=== PATIENT | male | born 1955 | race Caucasian/White ===

== ENCOUNTER 2023-09-07 09:29 | Emergency (ER) | payer OTHER, SELFPAY ==
[2023-09-07] VITALS (18 sets, daily range): BP systolic 115–187; BP diastolic 72–114; PULSE 75–88; RESP 18; TEMP 36.8; O2SAT 93–98; BMI 31.8
--- NOTE | 2023-09-07 09:45 | ED_ITS ---
HPI - General Adult General Chief complaint: Abdominal Pain Stated complaint: flu symptoms Time Seen by Provider: 09/07/23 09:43 History of Present Illness HPI narrative: pt flu like symptoms x 3 days, has not been eating or drinking. nausea. denies vomitting. little diarrhea . pt drove self to [facility], staff found him in his car weak and tired. called ems. ems gave pt 4mg zofran 68-year-old man presenting to the emergency department with spouse with complaint of flu-like symptoms over the last 3 days. Just notes dry heaves and unable to eat anything. Actually denies diarrhea on initial questioning. Tremendous abdominal pain though it seems like this is really more representing nausea as I ask further. Cramping. Increasingly weak. No chest pain or shortness of breath. Did receive Zofran from EMS after he drove himself to the clinic and was collected in his car. Brought here by EMS. Does have prior hernia repair. No fever but has been chilled. Related Data Home Medications Medication Instructions Recorded Confirmed atorvastatin 20 mg tablet 20 mg PO DAILY 09/07/23 09/07/23 buspirone 7.5 mg tablet 7.5 mg PO BID 09/07/23 09/07/23 diltiazem HCl 240 mg 240 mg PO DAILY 09/07/23 09/07/23 capsule,extended release 24 hr escitalopram oxalate 20 mg tablet 20 mg PO QAM 09/07/23 09/07/23 gabapentin 300 mg capsule 600 mg PO QPM 09/07/23 09/07/23 ropinirole 0.5 mg tablet mg PO 09/07/23 Previous Rx's Medication Instructions Recorded tamsulosin 0.4 mg capsule (Flomax) 0.4 mg PO DAILY #15 caps 09/07/23 Allergies Allergy/AdvReac Type Severity Reaction Status Date / Time No Known Drug Allergies Allergy Verified 09/07/23 09:37 Review of Systems Status of ROS: Reports: 6 or more systems reviewed and unremarkable except as noted in History and below [facility] Social History Smoking Status: Never smoker Do you use any of these nicotine containing products: None Second hand tobacco smoke exposure: No How often do you have a drink containing alcohol: never AUDIT-C Alcohol total score: 0 Non-prescribed substance use: denies use service: No Exam Narrative: Exam Narrative: Seems quite uncomfortable. Trembling a little bit at times. Eyes are closed tight. Skin is warm and dry. Oropharynx is dry. Lower extremities are well perfused and without edema. Abdomen with present bowel sounds is overweight and soft without peritoneal signs. Seems to be a little uncomfortable to palpation everywhere. Cranial nerves 2-12 are intact. Lungs appear to be clear. Heart in regular rate and rhythm. Const: Vital Signs, click to edit/add: Vital Signs - 24 hr 09/07/23 09:32 09/07/23 09:43 09/07/23 09:44 Temperature 98.2 F Pulse Rate 78 79 Pulse Rate [Pulse Oximeter] 75 Respiratory Rate 18 Blood Pressure 158/95 H Blood Pressure [Ri ght Upper Arm] 187/114 H Pulse Oximetry 97 98 [facility] 09/07/23 10:00 09/07/23 10:01 09/07/23 10:32 Temperature Pulse Rate 83 80 Pulse Rate [Pulse Oximeter] Respiratory Rate Blood Pressure 155/100 H 146/80 H Blood Pressure [Ri ght Upper Arm] Pulse Oximetry 98 98 Oxygen Delivery Me thod 09/07/23 11:01 09/07/23 11:32 09/07/23 12:01 Temperature Pulse Rate Pulse Rate [Pulse Oximeter] Respiratory Rate Blood Pressure 163/95 H 168/97 H 153/92 H Blood Pressure [Ri ght Upper Arm] Pulse Oximetry Oxygen Delivery Me thod 09/07/23 12:35 09/07/23 13:00 09/07/23 13:02 Temperature Pulse Rate 81 82 88 Pulse Rate [Pulse Oximeter] Respiratory Rate Blood Pressure 166/86 H Blood Pressure [Ri ght Upper Arm] Pulse Oximetry 97 96 96 Oxygen Delivery Me thod 09/07/23 13:30 09/07/23 13:32 09/07/23 13:33 Temperature Pulse Rate 80 82 84 Pulse Rate [Pulse Oximeter] Respiratory Rate Blood Pressure 139/80 Blood Pressure [Ri ght Upper Arm] Pulse Oximetry 95 94 94 Oxygen Delivery Me thod 09/07/23 14:00 09/07/23 14:02 09/07/23 14:03 Temperature Pulse Rate 82 83 81 Pulse Rate [Pulse Oximeter] Respiratory Rate Blood Pressure 115/72 Blood Pressure [Ri ght Upper Arm] Pulse Oximetry 94 96 93 Oxygen Delivery Ca thod Documenting provider has reviewed patient's vital signs: yes Course Vital Signs Vital signs: Initial Vital Signs Temperature 98.2 F 09/07/23 09:32 Temperature Source Temporal Artery Scan 09/07/23 09:32 Pulse Rate 75 09/07/23 09:32 Respiratory Rate 18 09/07/23 09:32 Blood Pressure 187/114 H 09/07/23 09:32 Blood Pressure Mean 138 H 09/07/23 09:32 Blood Pressure Position Supine 09/07/23 09:32 Pulse Oximetry 97 09/07/23 09:32 Oxygen Delivery Method Room Air 09/07/23 09:32 Vital Signs Temperature 98.2 F 09/07/23 09:32 Pulse Rate 75 09/07/23 09:32 Respiratory Rate 18 09/07/23 09:32 Blood Pressure 187/114 H 09/07/23 09:32 Pulse Oximetry 97 09/07/23 09:32 Oxygen Delivery Method Room Air 09/07/23 09:32 Temperature 98.2 F 09/07/23 09:32 Pulse Rate 81 09/07/23 14:03 Respiratory Rate 18 09/07/23 09:32 Blood Pressure 115/72 09/07/23 14:02 Pulse Oximetry 93 09/07/23 14:03 Oxygen Delivery Method Room Air 09/07/23 09:32 Medical Decision Making [facility] Narrative Medical decision making narrative: I think he is bothered most by nausea. Can certainly give more treatment for this. Is receiving a L normal saline. Does seem to be an enteritis or some form of gastroenteritis. Reassured somewhat by his abdominal exam which again is soft and diffusely tender as opposed to localizing. No rigidity demonstrated. These chills may represent rigors. Will screen though for COVID influenza. Blood cultures. He might actually be septic. Though blood pressure reassuringly elevated. Could have diverticulitis. Will also evaluate for evidence of any ischemic cardiac event. I do think that if we can get his nausea settle down, he will feel a lot better. Subsequently noted to have hematuria on urine collection. Differential potential concern of nephritis. Creatinine is 1.8 though. Discomfort is diffuse unlike typical presentation for kidney stone. Did order CT imaging with IV contrast. Perhaps or some vascular anomaly any to dress as well. CT IV contrasted scan of abdomen and pelvis reviewed by me shows numerous cysts in the right kidney bilateral stone burden and some hydronephrosis mild in the right kidney and ureter with a 5 mm stone at the right ureterovesicular junction COMPARISON: CT abdomen pelvis 04/19/2020. FINDINGS: Lower chest: Unremarkable. Liver: Mild hepatic steatosis. Scattered hepatic cysts. Gallbladder and bile ducts: Unremarkable. No stones or inflammation. No biliary dilatation. Pancreas: Unremarkable. No mass or inflammation. Spleen: Unremarkable. Normal in size. No masses. Adrenal glands: Unremarkable. No nodules. Kidneys: Mild right hydroureteronephrosis with 5 millimeter stone at the right UVJ. Additional nonobstructing stones measuring up to 6 millimeters on the right and 9 millimeters on the left. No left-sided hydronephrosis. Scattered renal cysts. No suspicious renal mass. GI tract: Unremarkable. Normal in caliber. No sign of mass or inflammation. No findings of appendicitis. No diverticular disease. Vasculature: Abdominal aorta is normal in caliber. Mesenteric arteries are patent. Lymph nodes: No lymphadenopathy. Peritoneum/Abdominal Wall: Small fat containing umbilical hernia. No sign of mass or infiltration. No free air or significant free fluid. Pelvis: Mildly enlarged prostate. Bones: Degenerative spondylosis. 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 IMPRESSION: 1. 5 millimeter stone at the right UVJ results in mild right hydroureteronephrosis. 2. Additional bilateral nonobstructing renal calculi. 3. Mild hepatic steatosis. 4. Degenerative spondylosis. 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 Later spouse does mention that he has had a kidney stone in the past. Maybe 3 years ago. Did re-dose with Reglan for nausea and then when I noted this kidney stone I think probably the nausea was being driven by pain. Abdominal exam though had been benign. I did order ketorolac and morphine. Finally Mr. Bolton seemed to have more energy set up and was tolerating oral intake. See patient discharge plan Lab Data Lab results reviewed: Yes I reviewed the patient's lab results Labs: Lab Results 09/07/23 09/07/23 09/07/23 Range/Units 10:10 10:20 Unknown WBC 11.22 H (4.50-11.00) K/uL RBC 4.97 (4.30-5.90) m/uL Hgb 15.1 (13.5-17.5) gm/dL Hct 44.6 (37.0-53.0) % MCV 90 (80-100) fL MCH 30 (26-34) pg MCHC 34 (32-36) gm/dL RDW Coeff of Ray 12.7 (11.5-15.5) % Plt Count 192 (140-440) K/uL Neut % (Auto) 86.2 H (42.0-72.0) % Lymph % (Auto) 7.6 L (20-44) % [place] % (Auto) 5.3 (0.0-11.0) % Eos % (Auto) 0.0 (0.0-7.0) % Baso % (Auto) 0.0 (0.0-3.0) % Neut # (Auto) 9.70 H (1.7-7.0) K/uL Lymph # (Auto) 0.90 (0.90-2.90) K/uL [place] # (Auto) 0.60 (0.00-0.90) K/UL Eos # (Auto) 0.00 (0.00-0.50) K/uL Baso # (Auto) 0.00 (0.00-0.30) K/uL Abs Immat Gran (auto) 0.10 (0.00-0.30) K/uL Imm/Tot Granulo (auto) 0.9 % Sodium 138 (135-149) mmol/L Potassium 4.1 (3.6-5.1) mmol/L Chloride 99 (96-114) mmol/L Carbon Dioxide 24 (20-32) mmol/L Anion Gap 15 (7-15) mEq/L BUN 30 (7-30) mg/dL Creatinine 1.8 H (0.5-1.5) mg/dL Estimated Creat Clear 43.00 Estimated GFR 41 ml/min Glucose 142 H (60-115) mg/dL Calcium 9.0 (8.4-10.6) mg/dL Total Bilirubin 1.4 (0.1-1.5) mg/dL Direct Bilirubin 0.0 (0.0-0.5) mg/dL AST 61 H (12-35) U/L ALT 40 (4-50) U/L Alkaline Phosphatase 89 (40-150) U/L Troponin I < 0.01 L (0.01-0.04) ng/mL NT-Pro-B Natriuret Pep 139 pg/mL Total Protein 7.6 (6.0-8.3) g/dL Albumin 4.4 (3.3-5.0) g/dL Urine Color Yellow (Yellow) Urine Appearance Clear (Clear) Urine pH 6.5 (5.0-8.5) Ur Specific [place] 1.025 (1.000-1.030) Urine Protein 1+ A (Negative) Urine Glucose (UA) Trace A (Negative) Urine Ketones 2+ A (Negative) Urine Blood Trace-lysed A (Negative) Urine Nitrite Negative (Negative) Urine Bilirubin Negative (Negative) Urine Urobilinogen 0.2 (0.2-1.0) Ur Leukocyte Esterase Negative (Negative) Urine RBC 2-5 A (0-2) Urine WBC 0-2 (0-5) Ur Squamous Epith Cells Few (None-Few) Urine Bacteria Few A (None) SARS-CoV-2 (PCR) Negative SARS-CoV-2 (Negative) Influenza Type A (PCR) Negative PCR FLU A (Negative) Influenza Type B (PCR) Negative PCR FLU B (Negative) Discharge Plan Discharge Clinical Impression: Ureteral colic, Right distal ureteral calculus Patient Disposition: Home w/ Parent or Adult Condition: Improved Additional Instructions: Focus on hydration with water generally. Follow-up middle of next week to recheck labs pertaining to your kidneys. Can take ibuprofen for pain. If needed Percocet from [facility]. Zofran also from [facility] for nausea. Consider straining your urine over this next week. I am sending Flomax into the pharmacy for you. This can be helpful with the spasming pain. This can be taken daily until you are sure the stone has passed. If you choose to take this, do not need to start until tomorrow. You received today's dose here today. Return for uncontrolled pain, intractable vomiting, fever. Also be seen if pain symptoms, though controlled, are continuing still in 4 days. Prescriptions: New tamsulosin [Flomax] 0.4 mg capsule 0.4 mg PO DAILY Qty: 15 0RF No Action atorvastatin 20 mg tablet 20 mg PO DAILY diltiazem HCl 240 mg capsule,extended release 24hr 240 mg PO DAILY ropinirole 0.5 mg tablet PO gabapentin 300 mg capsule 600 mg PO QPM buspirone 7.5 mg tablet 7.5 mg PO BID escitalopram oxalate 20 mg tablet 20 mg PO QAM Follow Up/Referrals: Kris Powell MD [Primary Care Provider] - Stand Alone Forms: [email or web address] Info Instructions
[2023-09-07] MEDS: 0.9 % SODIUM CHLORIDE 1000 ml 1,000 ML IV ×2 (10:11→11:27)
[2023-09-07] MEDS: PROMETHAZINE 25 MG/ML INJ 12.5 MG IVP (10:26)
[2023-09-07 10:33] LABS: Hematocrit 44.6 % (37.0-53.0); Hemoglobin* 15.1 gm/dL (13.5-17.5); Immature Granulocytes Pct Auto 0.9 %; Lymphocytes Percent Auto 7.6 % (20-44); Mean Corpuscular HGB Conc 34 gm/dL (32-36); Mean Corpuscular Hemoglobin 30 pg (26-34); Mean Corpuscular Volume 90 fL (80-100); Monocytes Percent Auto 5.3 % (0.0-11.0); Neutrophils Percent Auto 86.2 % (42.0-72.0); Platelet Count* 192 K/uL (140-440); RDW Coefficient of Variation % 12.7 % (11.5-15.5); Red Blood Count 4.97 m/uL (4.30-5.90); White Blood Count* 11.22 K/uL (4.50-11.00)
[2023-09-07 10:39] LABS: Slide Review Reflex No
[2023-09-07 10:46] LABS: Appearance Urine Clear (Clear); Bilirubin Urine Negative (Negative); Blood Urine Trace-lysed (Negative); Color Urine Yellow (Yellow); Glucose Urine Trace (Negative); Ketones Urine 2+ (Negative); Leukocyte Esterase Urine Negative (Negative); Nitrite Urine Negative (Negative); Protein Urine 1+ (Negative); Specific Gravity Urine 1.025 (1.000-1.030); Urobilinogen Urine 0.2 (0.2-1.0); pH Urine 6.5 (5.0-8.5)
[2023-09-07 10:48] LABS: Albumin* 4.4 g/dL (3.3-5.0); Chloride* 99 mmol/L (96-114); Sodium* 138 mmol/L (135-149)
[2023-09-07 10:49] LABS: Potassium* 4.1 mmol/L (3.6-5.1)
[2023-09-07 10:51] LABS: Alanine Aminotransferase* 40 U/L (4-50); Alkaline Phosphatase* 89 U/L (40-150); Anion Gap 15 mEq/L (7-15); Aspartate Amino Transferase* 61 U/L (12-35); Bilirubin Total* 1.4 mg/dL (0.1-1.5); Blood Urea Nitrogen* 30 mg/dL (7-30); Carbon Dioxide* 24 mmol/L (20-32); Creatinine* 1.8 mg/dL (0.5-1.5); Estimated Glomerular Filt Rate 41 ml/min; Glucose* 142 mg/dL (60-115); Total Protein* 7.6 g/dL (6.0-8.3)
[2023-09-07 10:55] LABS: Bacteria Urine Few; Squamous Epithelial Cell Urine Few (None-Few); WBC Urine 0-2 (0-5)
[2023-09-07 11:12] LABS: NT Pro B Type NatriureticPept* 139 pg/mL; Troponin I* < 0.01 ng/mL (0.01-0.04)
[2023-09-07 11:12] LABS: PCR FLU A Negative PCR FLU A (Negative); PCR FLU B Negative PCR FLU B (Negative)
[2023-09-07 11:17] LABS: SARS PCR* Negative SARS-CoV-2 (Negative)
--- NOTE | 2023-09-07 11:26 | CRLHL7_ITS ---
For Patients: As a result of the Century Cures Act, medical imaging exams and procedure reports are released immediately into your electronic medical record. You may view this report before your referring provider. If you have questions, please contact your health care provider. INDICATION: Hematuria. Diffuse abdominal pain. Nausea. TECHNIQUE: CT abdomen and pelvis acquired with 110 cc Isovue 370 IV contrast. COMPARISON: CT abdomen pelvis 04/19/2020. FINDINGS: Lower chest: Unremarkable. Liver: Mild hepatic steatosis. Scattered hepatic cysts. Gallbladder and bile ducts: Unremarkable. No stones or inflammation. No biliary dilatation. Pancreas: Unremarkable. No mass or inflammation. Spleen: Unremarkable. Normal in size. No masses. Adrenal glands: Unremarkable. No nodules. Kidneys: Mild right hydroureteronephrosis with 5 millimeter stone at the right UVJ. Additional nonobstructing stones measuring up to 6 millimeters on the right and 9 millimeters on the left. No left-sided hydronephrosis. Scattered renal cysts. No suspicious renal mass. GI tract: Unremarkable. Normal in caliber. No sign of mass or inflammation. No findings of appendicitis. No diverticular disease. Vasculature: Abdominal aorta is normal in caliber. Mesenteric arteries are patent. Lymph nodes: No lymphadenopathy. Peritoneum/Abdominal Wall: Small fat containing umbilical hernia. No sign of mass or infiltration. No free air or significant free fluid. Pelvis: Mildly enlarged prostate. Bones: Degenerative spondylosis. 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 IMPRESSION: 1. 5 millimeter stone at the right UVJ results in mild right hydroureteronephrosis. 2. Additional bilateral nonobstructing renal calculi. 3. Mild hepatic steatosis. 4. Degenerative spondylosis. 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 Please note that all CT scans at this facility use dose modulation, iterative reconstruction, and/or weight-based dosing when appropriate to reduce radiation dose to as low as reasonably achievable. Dictated by Mannie Fam MD @ 09/07/2023 1:28:26 PM (Electronically Signed)
[2023-09-07] MEDS: METOCLOPRAMIDE HCL 10 MG in 0.9 % SODIUM CHLORIDE 100 ml 100 ML 306 MG IVPB (12:58)
[2023-09-07] MEDS: KETOROLAC 30 MG/ML inj IVP (13:52)
[2023-09-07] MEDS: MORPHINE 4 MG/ML INJ IVP (13:53)
--- NOTE | 2023-09-07 14:26 | ED.NURSE ---
Patient ambulated around the unit well, no pain, dizziness or nausea.
[2023-09-07] MEDS: TAMSULOSIN HCL 0.4 MG CAPSULE PO (14:46)
== END 2023-09-07 15:07 | disposition home or self-care (01) ==
PROVIDERS: Emergency Provider Family Medicine; PCP Surgery
DX: N13.2 Hydronephrosis with renal and ureteral calculous obstruction (principal)
CPT/HCPCS: 36415; 74177; 80048; 80076; 81001; 83880; 84484; 85025; 87040; 87086; 87631; 96365; 96375; 99284; A0425; A0427; A9270; J1885; J2270; J2550; J2765; J7030; Q9967